=== PATIENT | female | born 1985 | race Caucasian/White ===

== ENCOUNTER 2018-01-08 17:58 | Emergency (ER) | payer BC, OTHER ==
[~2018-01-08] VITALS: Ht 162.6 cm; Wt 122.0 kg
[2018-01-08 18:40] LABS: ABSOLUTE NEUTROPHILS 7.3 thou/uL (1.4-8.2); BASOPHILS 0.9 % (0.0-2.0); EOSINOPHILS 5.9 % (0.0-3.0); HEMOGLOBIN 13.7 gm/dL (12.0-15.0); MCH 29.3 pg (26.0-34.0); MCHC 33.5 g/dL (28.0-37.0); MCV 87.6 fL (80.0-100.0); PLATELET COUNT 309 thou/uL (150-400); POLYS 52.2 % (36.0-66.0); RBC 4.68 mil/uL (4.20-5.00); RDW 13.3 % (10.5-14.5); WBC 16.6 thou/uL (4.0-11.0)
[2018-01-08 18:41] LABS: URINE BILIRUBIN NEGATIVE (Negative); URINE BLOOD NEGATIVE (Negative); URINE CLARITY CLEAR; URINE COLOR YELLOW; URINE GLUCOSE-RANDOM* NEGATIVE (Negative); URINE KETONES NEGATIVE (Negative); URINE LEUKOCYTES NEGATIVE (Negative); URINE NITRITE NEGATIVE (Negative); URINE PROTEIN (DIPSTICK) NEGATIVE (Negative); URINE UROBILINOGEN 0.2 E.U./dl (0.2-1.0)
[2018-01-08 18:50] LABS: ANION GAP 8 mmol/L (7-16); BUN 17 mg/dL (7-18); CALCIUM 9.5 mg/dL (8.5-10.1); CHLORIDE 104 mmol/L (98-107); CO2 26 mmol/L (21-32); CREATININE 0.8 mg/dL (0.6-1.0); GLUCOSE 85 mg/dL (74-106); POTASSIUM 4.5 mmol/L (3.5-5.1); SODIUM 138 mmol/L (136-145)
[2018-01-08 18:56] LABS: ALBUMIN 3.6 g/dL (3.4-5.0); DIRECT BILIRUBIN < 0.1 mg/dL (<0.1-0.3); LIPASE 318 U/L (73-393); SGOT 41 U/L (15-37); SGPT 45 U/L (30-65); TOTAL BILIRUBIN 0.3 mg/dL (<0.1-1.0)
[2018-01-08] MEDS ORDERED: ALEVE220 M1 PO (19:19)
[2018-01-08] MEDS ORDERED: IBUPROFEN 400400 M2 PO (19:19)
[2018-01-08] MEDS ORDERED: PROTONIX40 M1 PO (20:28)
[2018-01-08] MEDS ORDERED: CARAFATE 1 GM TA1 G1 PO (20:28)
[2018-01-08] MEDS ORDERED: BENTYL 20 MG TA20 M1 PO (20:28)
[2018-01-08] MEDS ORDERED: NORCO 5-325 TA1 EACH PO (20:28)
[2018-01-08] MEDS ORDERED: ZOFRAN ODT4 MG PO (20:37)
== END 2018-01-08 20:48 | disposition home or self-care (01) ==
LOC: ER 17:58
PROVIDERS: Emergency Medicine
DX: R10.11 Right upper quadrant pain (principal)